=== PATIENT | male | born 1975 | race Caucasian/White ===

== ENCOUNTER 2016-07-18 01:25 | Inpatient (IN) | payer OTHER ==
--- NOTE | ~2016-07-18 | A ---
[facility] Nutrition Therapy DATE: 07/18/16 Patient: NANCY Nix RICARDA Physician: AMI Address: [address] Room/Bed: [address], Zip: [place] [address] Admit Date: 07/18/16 Date of : [birth year] Height: 5 8 Weight: [phone] NUTRITIONAL ASSESSMENT: REASON: 1 point malnutrition risk score for unintentional weight loss Admitting Dx: 41 y/o male admitted with SI, auditory and visual hallucinations, detox PMH: Hep C, heroin abuse Anthropometrics: Ht: 68", Wt: 156 lbs, BMI: 23 (normal) Labs: Reviewed' nothing significant Meds: Milk of Mg, Mag-al, MVI, thiamine, folic acid, phenergan/zofran, loperamide, psych meds noted Assessment: Chart reviewed, events noted. No H&P available, patient just admitted today. Patient is currently undergoing heroin detox, he is homeless and unemployed. Scored 1 point on malnutrition risk score for unintentional weight loss but needs assessment related to weight change not documented, poor appetite today. No past weights available. He is on a regular diet with no caffeine. BMI is normal. See RD recs below. Dx: Predicted suboptimal energy intake r/t drug abuse, psych, homelessness AEB 1 point malnutrition risk score. Intervention: See recs below Monitoring, Evaluation and Goals: 1. Adequate oral intake > 50% of meals. 2. Prevent unintentional weight loss. Recommendations: 1. Continue regular diet, no caffeine per MD. Encourage adequate PO and fluid intake. 2. If PO intake is < 50% please order Ensure Plus BID (available in vanilla or chocolate, requires MD order). If larger portion entree is desired please order and RD will send at lunch and dinner. 3. Please weigh q 3 days for monitoring purposes. Continue vitamins. 4. Please consult RD with any further nutritional needs. [facility] Nutrition Therapy DATE: 07/18/16 Patient: NANCY Boyd CHOWDARY Physician: AMI Address: [address] Room/Bed: [address], Zip: [place] [address] Admit Date: 07/18/16 Date of : [birth year] Height: 5 8 Weight: [phone] Mild nutrition risk Respectfully, Mami Ferreira RD, LD [facility] cc: client file
--- NOTE | ~2016-07-18 | PA ---
Unit #: [id number] #: [id number] Patient: NANCY HATHAWAY [id number] [facility] [address] [place] [address] [id number] I MR#: [id number] NAME: NANCY HATHAWAY. ROOM: [facility] Age: 41 Sex: M Admission Date: 07/18/2016 : 1975 Date of Assessment: 07/18/2016 Attending Physician: Thiago Monroy M.D. Admitting Physician: Thiago Monroy M.D. Primary Care Physician: Generic Doctor Not In System PSYCHIATRIC ASSESSMENT DATE OF SERVICE 07/18/2016. INFORMANTS The patient's reliability, fair; chart reliability, good. CHIEF COMPLAINT Suicidal ideation, detox. HISTORY OF PRESENT ILLNESS Mr. Nancy Hathaway is a 41-year-old male, seen on 07/18/2016 with the above-mentioned complaint. The patient is currently homeless, presented with suicidal ideation stated that he has been having auditory hallucination and visual hallucination. Reports that it is getting so worse to the point that he having thoughts of harming himself. The patient was unable to contract for safety. The patient also reported thinking of overdosing on heroin. The patient stated that he uses heroin and meth and his last use was 07/17/2016. The patient denied any homicidal ideation or any delusions. The patient has a history of hepatitis C. The patient reported tobacco use, half pack a day. Opioid unknown amount. The patient reported no known history of any blackout, but history of hepatitis C and history of IV drug use. Needed inpatient admission at this time for psychiatric stabilization. PAST PSYCHIATRIC HISTORY Remarkable for history of previous treatment, details unknown at this time. FAMILY AND SOCIAL HISTORY The patient currently homeless, poor support system. No known history of any abuse. No legal charges. MEDICAL HISTORY Remarkable for history of hepatitis C. Musculoskeletal; muscle strength and tone, no atrophy or abnormal movement. Gait normal. MEDICATION HISTORY None. ALLERGIES No known drug allergies. SUBSTANCE ABUSE HISTORY Please see above. Unit #: [id number] #: [id number] Patient: NANCY HATHAWAY REVIEW OF SYSTEMS HEENT: Eyes, clear. Ears, nose, mouth, and throat; clear. CARDIOVASCULAR: Unremarkable. RESPIRATORY: Unremarkable. GI: Unremarkable. : Unremarkable. SKIN: Unremarkable. LYMPH NODE: Unremarkable. NEUROLOGIC: Unremarkable. ENDOCRINE: Unremarkable. HEMATOLOGIC: Unremarkable. ALLERGIC/IMMUNOLOGIC: Unremarkable. MUSCULOSKELETAL: Muscle strength and tone, no atrophy or abnormal movement. Gait normal. MENTAL STATUS EXAMINATION CONSTITUTIONAL: Measurement of vital signs; temperature 97.7, pulse 90, respirations 18, blood pressure 198/56. Height 5 feet 8 inches, weight 156 pounds. GENERAL APPEARANCE: The patient dressed casually. The patient did not show any facial deformity. MUSCULOSKELETAL: Please see above. PSYCHIATRIC EXAMINATION Description of speech; regular rate, normal volume, normal articulation, coherent. Description of thought process, goal directed. Description of association, intact. Description of abnormal psychotic thinking; the patient denied any hallucination or delusions, mood lability, sad, depressed, withdrawn, isolative, substance abuse. Description of the patient's judgment; concerning everyday activity, poor. Social situation, poor. Concerning psychiatric condition, poor. Complete mental status examination; oriented in time, place, and person. Attention span and concentration, fair. Language, able to name object and repeat phrases. Fund of knowledge, fair to poor. Vocabulary, fair. Mood and affect, sad and dysphoric. Insight and judgment, fair to poor. ASSETS AND LIABILITIES Assets; the patient articulate, able to take care of his ADL. Liability; history of substance abuse. ADMITTING DIAGNOSES Psychiatric: 1. Mood disorder, not otherwise specified, F32.9. 2. Opioid use disorder, severe, F11.20. Secondary diagnosis: Deferred. Medical diagnosis: Hepatitis C. Stressors: Psychosocial stressor. PSYCHIATRIC PLAN AND TREATMENT GOAL 1. Advised to admit the patient on the inpatient unit. Provide safe, supportive, and structured environment. 2. Ordered labs; CBC, CMP, UA, and UDS. 3. Precaution for self-harm, detox monitoring. 4. Detox protocol and detox monitoring. The patient to attend all the Unit #: [id number] #: [id number] Patient: NANCY HATHAWAY programing on the inpatient unit with group therapy, individual therapy, medication management. If needed, consider further adjustment of medication. Advised trazodone 75 mg at bedtime for sleep. Treatment goal to attain euthymic mood, gain insight into his problem, and learn coping skills. DISCHARGE PLAN Plan to stabilize the patient and consider followup in outpatient program. ESTIMATED LENGTH OF STAY 3 to 5 days. Dictated by... Julian Serra/rolly TD: 07/19/2016 00:58 JOB #: [id number] PSYCHIATRIC ASSESSMENT X Thiago Monroy MD PSYCHIATRIC ASSESSMENT
--- NOTE | ~2016-07-18 | PN ---
Unit #: [id number] #: [id number] Patient: NANCY HATHAWAY [id number] [facility] [address] [place] [address] [id number] I MR#: [id number] NAME: NANCY HATHAWAY. ROOM: [facility] Age: 41 Sex: M Admission Date: 07/18/2016 : 1975 Attending Physician: Thiago Monroy M.D. Admitting Physician: Thiago Monroy M.D. Primary Care Physician: Generic Doctor Not In System [facility] PROGRESS NOTES DATE OF SERVICE: 07/19/2016 DISCUSSION Nancy Hathaway is a 41-year-old male, seen on 07/19/2016. The patient interviewed, chart reviewed, and obtained information from nursing staff. The patient was admitted with detox and suicidal ideation. The patient was withdrawn, isolative, flat affect, guarded. The patient's vital signs; temperature 97.8, pulse 77, and blood pressure 90/48. Complete review of systems unremarkable. MENTAL STATUS EXAMINATION General appearance, the patient dressed casually. Attention span and concentration, fair. Oriented in place and person. Mood and affect; sad, dysphoric, flat affect, guarded. The patient was withdrawn, isolative, guarded. Reported hearing voices. Recent and remote memory, poor. Insight and judgment, poor. DIAGNOSES 1. Mood disorder, not otherwise specified. 2. Opioid use disorder, severe. ASSESSMENT AND PLAN Advised to continue with current medication and therapeutic protocol. We will closely monitor the patient's mood and behavior. If needed, consider further adjustment of medication. Dictated by... Julian Serra/rolly TD: 07/21/2016 00:14 JOB #: [id number] Unit #: [id number] #: [id number] Patient: NANCY HATHAWAY [facility] PROGRESS NOTES X Thiago Monroy MD PROGRESS NOTE
--- NOTE | ~2016-07-18 | HP ---
Unit #: [id number] #: [id number] Patient: NANCY CHOWDARY [id number] [place] [address] [id number] MR#: [id number] NAME: NANCY CHOWDARY. ROOM: [facility] Age: 41 Sex: M Admission Date: 07/18/2016 : 1975 Attending Physician: Thiago Monroy M.D. Admitting Physician: Thiago Monroy M.D. Primary Care Physician: Generic Doctor Not In System HISTORY AND PHYSICAL HISTORY OF PRESENT ILLNESS Nancy is a 41 year old admitted to [facility] because of his polysubstance abuse which includes IV heroin and methamphetamine. PAST MEDICAL HISTORY 1. Long history of illicit substance abuse to include IV drugs 2. Hepatitis C PAST SURGICAL HISTORY T & A ALLERGIES No known drug allergies. SOCIAL HISTORY Smokes less than one pack per day. Denies alcohol. Admits to a long history of illicit substance abuse to include IV drugs. FAMILY HISTORY Medically noncontributory. REVIEW OF SYSTEMS CONSTITUTIONAL: No fever or chills. HEENT: Denies any sore throat, ear pain or runny nose. CARDIOVASCULAR: Denies chest pain, irregular heart rhythm or palpitations. CHEST: Denies shortness of breath or cough. No hemoptysis. GASTROINTESTINAL: Denies nausea, vomiting, diarrhea or chronic constipation. ENDOCRINE: Denies history of increased thirst or urination. No recent significant weight loss or gain. GENITOURINARY: Denies dysuria, frequency, or hematuria. SKIN: Denies any rashes. HEMATOLOGIC: Denies history of increased bleeding or bruising. MUSCULOSKELETAL: Denies any hot, swollen joints. No generalized muscle pain. NEUROLOGIC: Denies problems with vision or speech. No frequent, severe headaches. No numbness, tingling or weakness in any extremities. Denies loss of bladder or bowel control. CURRENT MEDICATIONS Detox protocol Unit #: [id number] #: [id number] Patient: NANCY CHOWDARY PHYSICAL EXAMINATION GENERAL: Alert, well-nourished, in no apparent distress. VITAL SIGNS: Blood pressure 100/62, heart rate 80, respirations 16, temperature 98.6. WEIGHT: 156 pounds. HEIGHT: 5'8". SKIN: Warm and dry without rash or lesion. HEENT: Normocephalic. TMs not viewed. Oral and nasal passages clear. Conjunctivae clear. Pupils equal, round and reactive to light and accommodation. Extraocular movements intact. NECK: Supple without lymphadenopathy or thyromegaly. HEART: Regular rate and rhythm without murmur. LUNGS: Clear. ABDOMEN: Soft, nontender. : Not done. EXTREMITIES: No evidence of cyanosis, clubbing or edema. Moves all extremities without focal deficit. NEUROLOGICAL: Grossly within normal limits. Cranial Nerves: II: Visual silverman are intact. III, IV AND : Extraocular movements are intact. Pupils are equal, round and reactive to light. V: Facial sensation is grossly normal. VII: Facial movements and expression are normal. VIII: Auditory acuity grossly intact. IX, X: Uvula is midline. Phonation is normal. XI: Patient shrugs shoulders and turns head normally. XII: Tongue protrudes in the midline. Sensory and Motor Function: Sensory and motor sensation is grossly normal. Motor: moves all extremities well. Coordination: Gait is normal. Deep Tendon Reflexes: Intact. IMPRESSION Psychiatric admission RECOMMENDATIONS PSYCHIATRIC: Per psychiatrist. MEDICAL: I see no contraindications to participating in facility's activities. MEDICAL PROGNOSIS Good. MEDICAL CONDITION Stable. Dictated by... Mireille Aldrich PMaribell. for Julian Ledesma/maria l TD: 07/19/2016 00:07 JOB #: [id number] Unit #: [id number] #: [id number] Patient: NANCY CHOWDARY HISTORY AND PHYSICAL X Mireille Aldrich X HISTORY AND PHYSICAL
--- NOTE | ~2016-07-18 | DS ---
Unit #: [id number] #: [id number] Patient: NANCY CHOWDARY [id number] [facility] [address] [place] [address] [id number] MR#: [id number] NAME: NANCY CHOWDARY. ROOM: [facility] Age: 41 Sex: M Admission Date: 07/18/2016 : 1975 Discharge Date: 07/20/2016 Attending Physician: Thiago Monroy M.D. Primary Care Physician: Generic Doctor Not In System DISCHARGE SUMMARY REASON FOR ADMISSION Suicidal ideation, detox. DIAGNOSTIC STUDIES LABORATORY RESULTS: Remarkable for urine drug screen positive for amphetamine and opioids. HOSPITAL COURSE The patient was admitted to inpatient unit on 07/18/2016 and discharged on 07/20/2016. The patient was treated on the inpatient unit with group therapy, individual therapy, medication management, and detox protocol. The patient responded well with the above modalities of treatment and showed improvement in mood. Denied any thoughts of harming self or others. Subsequently, the patient was discharged with a plan to follow up in outpatient clinic. DISCHARGE MEDICATIONS None. DISCHARGE DIAGNOSES Psychiatric: 1. Mood disorder, not otherwise specified, F32.9. 2. Opioid use disorder, severe, F11.20. Secondary diagnosis: Deferred. Medical diagnosis: Hepatitis C. Stressors: Psychosocial stressors. DISCHARGE INSTRUCTIONS The patient to follow up in outpatient clinic as per forensic social worker. CONDITION ON DISCHARGE The patient was pleasant and cooperative. Denied any psychotic symptom or any suicidal ideation. PROGNOSIS Guarded. DIET AND ACTIVITY As tolerated. Unit #: [id number] #: [id number] Patient: NANCY CHOWDARY Dictated by... Julian Serra/rolly TD: 07/21/2016 01:49 JOB #: [id number] DISCHARGE SUMMARY X Thiago Monroy MD X DISCHARGE SUMMARY
[2016-07-18 09:42] LABS: BASOPHIL% 0.4 % (0-2.5); EOSINOPHIL# 0.6 X10e3 (0-0.7); EOSINOPHIL% 7.1 % (0.0-7.0); HEMATOCRIT 45.7 % (38.0-50.0); HEMOGLOBIN 15.2 gm/dL (13.0-16.0); LYMPHOCYTE# 2.6 X10e3 (1.0-3.5); LYMPHOCYTE% 33.2 % (17.0-45.0); MEAN CELL VOLUME 88.3 FL (83-96); MEAN CORPUSCULAR HEMOGLOBIN 29.4 PG (28-34); MEAN CORPUSCULAR HGB CONC 33.3 g/dL (30-36); MEAN PLATELET VOLUME 7.7 FL (6.5-11.5); MONOCYTE# 0.7 X10e3 (0-1.0); MONOCYTE% 8.3 % (3.0-12.0); PLATELET COUNT 235 X10e3 (140-420); RED BLOOD COUNT 5.18 X10e (3.90-5.60); RED CELL DISTRIBUTION WIDTH 14.4 % (11.0-15.5); WHITE BLOOD COUNT 7.9 X10e3 (4.0-10.5)
[2016-07-18 09:56] LABS: THYROID STIMULATING HORMONE 0.72 uIU/ml (0.34-5.60)
[2016-07-18 09:59] LABS: DIFF IND NO
[2016-07-18 10:02] LABS: FREE THYROXIN (T4) 0.94 ng/dL (0.58-1.64)
[2016-07-18 10:09] LABS: ALBUMIN SERUM 3.6 g/dL (3.5-5.0); ALKALINE PHOSPHATASE 70 U/L (32-92); ALT (SGPT) 24 U/L (10-40); AST (SGOT) 18 U/L (10-42); BILIRUBIN,TOTAL 0.5 mg/dL (0.2-2.0); BLOOD UREA NITROGEN 10 mg/dL (9-23); CALCIUM SERUM 8.7 mg/dL (8.4-10.2); CARBON DIOXIDE 27 mmol/L (22-31); CHLORIDE 104 mmol/L (100-111); CREATININE SERUM 0.8 mg/dL (0.6-1.4); GLOM FILT RATE Estimated ABOVE60 mL/min (>60); GLUCOSE FASTING 93 mg/dL (70-110); POTASSIUM 4.1 mmol/L (3.5-5.1); PROTEIN TOTAL SERUM 6.4 g/dL (6.0-8.3); SODIUM 137 mmol/L (135-145)
[2016-07-18 12:40] LABS: URINE APPEARANCE TURBID; URINE BILIRUBIN NEG (NEG); URINE BLOOD NEG (NEG); URINE COLOR YELLOW; URINE GLUCOSE NEG (NEG); URINE KETONE NEG (NEG); URINE LEUKOCYTE ESTERASE NEG (NEG); URINE NITRATE NEG (NEG); URINE PROTEIN NEG (NEG); URINE SPECIFIC GRAVITY 1.018 (1.003-1.035)
[2016-07-18 13:24] LABS: AMPHETAMINE POS (NEG); BARBITURATES NEG (NEG); BENZODIAZEPINES NEG (NEG); COCAINE NEG (NEG); MARIJUANA NEG (NEG); OPIATES POS (NEG); TRICYCLIC ANTIDEPRESSANTS NEG (NEG); U METHADONE NEG (NEG)
[2016-07-22 09:06] LABS: HA AB IGM (HEPPAN) Nonreactive (Nonreactive); HB CORE AB IGM (HEPPAN) Nonreactive (Nonreactive); HB S AG (HEPPAN) Nonreactive (Nonreactive); HEP C AB (HEPPAN) Reactive (Nonreactive)
== END 2016-07-20 11:50 | disposition home or self-care (01) | DRG 881 ==
LOC: P1E 01:25
PROVIDERS: Psychiatry & Neurology Psychiatry
PROC: HZ2ZZZZ Detoxification Services for Substance Abuse Treatment (ICD-10-PCS; principal; 2016-07-18)
DX: F32.9 Major depressive disorder, single episode, unspecified (principal); F11.20 Opioid dependence, uncomplicated; B19.20 Unspecified viral hepatitis C without hepatic coma; F17.200 Nicotine dependence, unspecified, uncomplicated
CPT/HCPCS: 80053; 80074; 80307; 81003; 84439; 84443; 85025; 86592; 87522; 87806